=== PATIENT | male | born 1945 | race Caucasian/White ===

== ENCOUNTER 2017-02-05 03:04 | Inpatient (IN) | payer MEDICARE, OTHER ==
[~2017-02-05] VITALS: Ht 193 cm; Wt 132.9 kg
--- NOTE | ~2017-02-05 | DS ---
Discharge Summary [id number] [place]. [address] NAME: CM MCLAUGHLIN : 41 STATUS : ADM IN [facility]#: [id number] AGE: 72 ADM/REG DATE : 02/05/17 MR#: [id number] REPORT SERV DATE: 02/08/17 DICTATED BY: DIMITRIS RENDON II DATE: 02/07/17 REPORT STATUS : Draft TRANSCRIBED BY: MODL DATE: 02/07/17 ADMISSION DATE: 02/05/2017 DISCHARGE DATE: 02/07/2017 DISCHARGE DIAGNOSES: 1. Hypertension. 2. 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 3. Generalized weakness with falls prior to arrival in the setting of paraplegia. 4. Candidiasis to the skin. 5. Decubitus ulcer, present upon admission. 6. Chronic pain. 7. Type 2 diabetes. CONSULTATIONS: None. PERTINENT TESTS AND PROCEDURES: 1. Chest x-ray, 02/05/2017. Lungs clear with no infiltrates. No effusions or masses seen. Heart size normal. 2. Urinalysis, specimen collected, 02/05/2017, result: Moderate leukocyte esterase, positive nitrites, four red blood cells, and 112 white blood cells, few white blood cell clumps, less than one epithelial squamous cell, and many bacteria. 3. Blood cultures x2 sites, specimen collected 02/05/2017, preliminary result: No growth at one day. 4. Urine culture, final result greater than 100,000 colonies per mL of urine E. coli ESBL. HOSPITAL COURSE: Please refer to history and physical dated 02/05/[address] Raheem So for complete details pertaining to the patient's initial presentation upon admission and health history. Briefly, the patient is a 72-year-old male with a past medical history significant for type 2 diabetes chronic kidney disease, hypertension, recurrent urinary tract infections with ESBL E. coli, history of MRSA soft tissue infections, and paraplegia who has presented to the emergency department on 02/05/2017 with complaints of fall to the floor and generalized weakness. LABORATORY EVALUATION: Upon admission showed a white blood cell count of 6100, hemoglobin 11.9, hematocrit 37.6, and platelet count of 148. Urinalysis showed moderate leukocyte esterase, positive nitrites, 112 white blood cells, and many bacteria. The patient was admitted for generalized weakness and falls and urinary tract infection with history of recurrence E. coli ESBL versus carrier state. The patient was initially started on empiric IV antibiotic with meropenem for ESBL E. coli UTI with consult to Infectious Disease to see if they recommend continuing antibiotic therapy in the setting of possible carrier state/colonization. The patient is well known to Discharge Summary [address] [place]. [address] NAME: CM MCLAUGHLIN : 41 STATUS : ADM IN PAT#: [id number] AGE: 72 ADM/REG DATE : 02/05/17 MR#: [id number] REPORT SERV DATE: 02/08/17 DICTATED BY: DIMITRIS RENDON II DATE: 02/07/17 REPORT STATUS : Draft TRANSCRIBED BY: LESLIE DATE: 02/07/17 Shalom Zamora Disease. Based on the patient's asymptomatic state, to include no dysuria or hematuria, normal white blood cell count, and no fever, ID recommended discontinuing antibiotic therapy and to monitor closely all for signs and symptoms of infection. The patient reported he has been living successfully, had an independent living [facility] facility in [place] for quite some time. The patient reports also having modified vehicle that allows him to drive. The patient states up until recently he was able to perform his activities of daily living unassisted to include successful transfer from bed to wheelchair, toileting and dressing, and light meal preparation. The patient stated that the last two to three days prior to this admission, he had been feeling weaker than usual and was unable to transfer successfully from toilet to the wheelchair resulting in falls. The patient requested rehabilitation upon discharge in hopes of returning to independent living once therapy complete. The patient stated he would consider assisted living facility upon discharge from rehab if his baseline health status did not return. 1. UTI recurrent E. coli ESBL. This is likely carrier state/colonization. Review of the patient's medical records shows the patient had a multiple urine cultures positive for E. coli ESBL dating back as far as 2009. The patient is followed by Dr. Perez, urologist, on a routine basis. The patient reports having recent "antibiotic bladder wash" in September. The patient to follow up with Dr. Perez in the next several weeks for re-evaluation in the setting of recurrent urinary tract infections. The patient is urinating without difficulty with no symptoms of dysuria, hematuria, and quite increased urgency or frequency. 2. Hypertension. The patient states no medication and passed to manage hypertension. Reported blood pressure has always been reasonably controlled without medication intervention. The patient's systolic blood pressure has run elevated throughout this entire admission ranging between high 140s to 190s. The patient agreed to start amlodipine 5 mg tablet p.o. daily. This needs to be monitored on an outpatient basis, per primary care physician. Appointment time and date for followup with PCP are pending. 3. Generalized weakness. The patient has a history of paraplegia secondary to multiple spinal surgeries. The patient suffered a fall during transfer from the toilet to the wheelchair prior to this admission and requested rehabilitation after hospitalization in hopes of improving baseline health status to resume independent living in the near future. The patient will discharge to [facility] with goal to resume independent living. 4. Candidiasis of skin. The patient has yeast to axillae, breast, abdominal, and groin folds. Nystatin powder applied beneath both breasts and axillae and InterDry sheets applied to abdominal folds and groin until condition resolves. No creams, powders, or ointments applied underneath InterDry cloth. Treatment will likely be extended secondary to significance of rash. 5. Decubitus ulcer to right buttocks. This was present on admission. The patient aware of ulcer, but states unable to care for at home. Wound care was initiated during this hospitalization and [facility] facility has been informed of wound. If the patient discharges from rehab to independent living, will likely require home health care plus or minus wound care management. 6. Chronic pain. This is secondary to multiple surgeries. The patient is followed by Dr. Salas Summary [address] [address] NAME: CM MCLAUGHLIN : 41 STATUS : ADM IN PAT#: [id number] AGE: 72 ADM/REG DATE : 02/05/17 MR#: [id number] REPORT SERV DATE: 02/08/17 DICTATED BY: DIMITRIS RENDON II DATE: 02/07/17 REPORT STATUS : Draft TRANSCRIBED BY: LESLIE DATE: 02/07/17 [facility]on at [facility] to include baclofen pump refills. The patient will need to follow up as scheduled, appointment date and time is pending. 7. Type 2 diabetes. The patient's A1c was 5.1, December 2016. Continue home medications. DISCHARGE CONDITION: At the time of discharge, the patient is hemodynamically stable. Wheelchair for ambulation. DISCHARGE DIET: 2000 calorie ADA diet. DISCHARGE MEDICATIONS: 1. Vitamin C 500 mg tablet, take 250 mg p.o. daily. 2. Aspirin 81 mg tablet, take 162 mg p.o. daily. 3. Lipitor 10 mg tablet p.o. daily at bedtime. 4. Vitamin B12 of 1000 mcg IM every thirty days. 5. Caltrate plus D 600 p.o. twice daily. 6. Colace 100 mg tablet p.o. twice daily. 7. Vitamin D 50,000 units p.o. every Tuesday. 8. Duragesic 100 mcg/hour transdermal patch, applied topically every 72 hours. 9. Ferrous sulfate 300 mg tablet p.o. before breakfast. 10.Lasix 20 mg tablet p.o. twice daily at 9 a.m. and 4 p.m. 11.Neurontin 300 mg tablet p.o. three times daily. 12.Amaryl 2 mg tablet, take 1 mg p.o. with breakfast. 13.NovoLog sliding scale level 2 insulin subcu before meals and at bedtime. 14.Lidoderm 5% topical patch applied to the most painful area 12 hours within the 24-hour period, is currently is applied in the a.m. and removed in the p.m., however, the patient is requesting for a patch to be applied at h.s. and removed in the a.m. to help control pain throughout night time. 15.Theragran multiple vitamin p.o. daily. 16.Niacin 500 mg tablet p.o. twice daily. 17.Mycostatin topical powder, applied to axillae and bilateral breast until condition resolves. 18.Promega caplet two caplets p.o. daily. 19.Protonix 40 mg tablet p.o. daily. 20.MiraLAX 17 g p.o. daily, hold for diarrhea. 21.Potassium 10 mEq p.o. twice daily. 22.Florastor one caplet p.o. twice daily. 23.Senokot one tablet p.o. at bedtime. 24.Flomax 0.4 mg tablet p.o. daily at 0900 hours and 1800 hours. Give 30 minutes after the same meal each day. 25.Effexor XR 75 mg p.o. daily. 26.Tylenol 1000 mg p.o. every six hours as needed, not to exceed 4 g in 24 hours. 27.Liquid tears, applied one drop each eye as needed. 28.Neurontin 300 mg tablet p.o. daily as needed. 29.Dilaudid 4 mg tablet p.o. every four hours as needed. Hold for sedation. 30.Baclofen pump 574.2 mcg per day, as managed per Dr. Jose at [facility]. 31.Inqq-wct-fumjeew iron tablet p.o. daily. 32.Elocon cream 0.1%, applied topically as needed to dermatitis on face. Discharge Summary [address] [address] NAME: CM MCLAUGHLIN : 41 STATUS : ADM IN [facility]#: [id number] AGE: 72 ADM/REG DATE : 02/05/17 MR#: [id number] REPORT SERV DATE: 02/08/17 DICTATED BY: DIMITRIS RENDON II DATE: 02/07/17 REPORT STATUS : Draft TRANSCRIBED BY: LESLIE DATE: 02/07/17 33.InterDry sheets applied to all of them, abdominal and groin folds per package instructions. No creams, powders, lotions or ointments to area covered by InterDry sheet. 34.Amlodipine 5 mg tablet p.o. every a.m. Hold for systolic blood pressure less than 110. DISPOSITION INSTRUCTIONS: 1. Follow up with Dr. Jose, Pain Management, [facility], for baclofen pump refill. Appointment date and time pending number. 2. Follow up with Dr. Perez, Urology, for recurrent UTI ESBL E. coli colonization/carrier state. Appointment date and time pending. 3. Follow up with Dr. Martini, primary care physician, for routine health maintenance and new requirement for hypertensive medication. The patient to [facility] to [facility] for [facility] with plans to return to independent living facility. Collaborating physician, Dr. Dimitris Rendon. ROCIO/LESLIE Shantelle Poole, DIRECTOR OF COLLECTIONS AND ARCHIVES-C Dimitris Rendon II, MD / [id number] CC: MD Kyle Gregg II, M.D. Oliver Benton III, M.D. Hal Hill, M.D. Mani Ravee, M.D. [facility]
--- NOTE | ~2017-02-05 | HP ---
History And Physical [facility] [address] [place]. [address] NAME: CM MCLAUGHLIN : 41 STATUS : ADM IN [facility]#: [id number] AGE: 72 ADM/REG DATE : 02/05/17 MR#: [id number] REPORT SERV DATE: 02/05/17 DICTATED BY: RAHEEM LAMBERT DATE: 02/05/17 REPORT STATUS : Draft TRANSCRIBED BY: MODL DATE: 02/05/17 DATE OF ADMISSION: 02/05/2017 CHIEF COMPLAINT: Fall to the floor, generalized weakness. HISTORY OF PRESENT ILLNESS: This is a 72-year-old paraplegic gentleman, who lives at the [facility] [place], who has a history of diabetes, chronic kidney disease, hypertension, recurrent urinary tract infections with ESBL E. coli, who presents to the emergency room at [facility] with the above-mentioned complaint. History is obtained from the patient and reviewing data available on the [employer] System. According to Mr. Mclaughlin, he usually is able to take care of himself well, lives at an [facility] and has help from people around him as well. In the last two to three days, he says he has been feeling weaker than usual, and today when he was transferring from the toilet to his wheelchair, he suddenly felt his arms could not hold him and he slowly slid to the floor. He tried to get to the showers chair, but was unable to do so. EMS was subsequently summoned and the patient was brought to the emergency room for evaluation. He did not hit his head against anything, did not pass out or lose consciousness. In the emergency room, he did have a urinary tract infection along with generalized weakness and Hospitalist Service is asked to admit him for further evaluation and treatment. At the time of my evaluation, he denied any chest pain or palpitations. He had no orthopnea. He had no cough, hemoptysis, night sweats, or weight loss. He has not had any fevers or chills in the recent past. No dysuria. He has not had any nausea, vomiting, diarrhea, hematemesis, hematochezia, or hematuria. No other history of recent travel or exposures other than those mentioned above. PAST MEDICAL HISTORY: Significant for diabetes mellitus, chronic kidney disease, hypertension, history of MRSA soft tissue infections, recurrent urinary tract infections with ESBL E. coli, and he also has a history of depression and as mentioned above he is paraplegic. SOCIAL HISTORY: He does not smoke, drink, or use recreational drugs. FAMILY HISTORY: Noncontributory. MEDICATIONS: His medications at home were reviewed by me in the chart today and reordered by me. REVIEW OF SYSTEMS: As in history of present illness. All other systems were reviewed in detail and are quite unremarkable. PHYSICAL EXAMINATION: History And Physical [address] [address] NAME: CM MCLAUGHLIN : 41 STATUS : ADM IN [facility]#: [id number] AGE: 72 ADM/REG DATE : 02/05/17 MR#: [id number] REPORT SERV DATE: 02/05/17 DICTATED BY: RAHEEM LAMBERT DATE: 02/05/17 REPORT STATUS : Draft TRANSCRIBED BY: LESLIE DATE: 02/05/17 GENERAL: This is a pleasant 72-year-old not in any acute distress. HEENT: His head is atraumatic and normocephalic. He is alert, awake, oriented to time, place, and person. His pupils are equal, reacting to light and accommodating. External ocular muscles are intact. Membranes are moist and pink. Sclerae are nonicteric. NECK: Supple with no jugular venous distention, lymphadenopathy, or thyromegaly. LUNGS: Clear to auscultation with no wheezes, rubs, or crackles. HEART: Heart sounds were regular with no murmurs, rubs, or gallops. ABDOMEN: Soft and nontender. Bowel sounds are present. EXTREMITIES: He has paraplegia and otherwise without any cyanosis or clubbing. NEURO: Grossly intact. He was able to move his upper extremities. Higher functions appeared intact. VITAL SIGNS: His temperature was 97.1, pulse 80, respirations 20 a minute, blood pressure was 194/95, and oxygen saturations were 94% breathing 2 L of oxygen via nasal cannula. LABORATORY DATA: Reviewed on the [employer] system showed a normal CMP with a blood glucose of 123. His lipase was 53. Alkaline phosphatase, ALT, and AST were within normal limits. Troponin was 0.02. His lactate was 1.5 today. CBC showed a white blood cell count of 6100, hemoglobin was 11.9, hematocrit 37.6, and platelet count was 148,000. Urinalysis showed moderate leukocyte esterase, nitrite was positive, there were 112 wbc's and many bacteria. Films of the chest x-ray were reviewed by me on the PACS today and interpreted by me. Per my interpretation, there are no lobar consolidations or pleural effusions seen. A 12-lead EKG done in the emergency room was reviewed and interpreted by me. There is sinus rhythm at a rate of [address]-T changes. IMPRESSION: 1. Generalized weakness and fall. 2. Urinary tract infection with extended-spectrum beta-lactamase Escherichia coli or a carrier state. 3. Diabetes mellitus, type 2. 4. Paraplegia. 5. Chronic kidney disease. 6. Hypertension. 7. Depression. PLAN: We will admit Mr. Mclaughlin to the Hospitalist Service with defensive monitoring. After cultures are drawn, we will start him initially on empiric IV antibiotics with meropenem for the ESBL E. coli UTI and go ahead and consult Infectious Disease to see if they would recommend continuing it. Meanwhile, we will control his blood sugars with NovoLog given subcutaneously per sliding scale. We will also start him on some IV fluids for volume replacement. Check electrolytes and replete as needed. We will certainly consult Social Work to evaluate him for possible placement as he says he is unable to take care of himself History And Physical [address] [address] NAME: CM MCLAUGHLIN : 41 STATUS : ADM IN [facility]#: [id number] AGE: 72 ADM/REG DATE : 02/05/17 MR#: [id number] REPORT SERV DATE: 02/05/17 DICTATED BY: RAHEEM LAMBERT DATE: 02/05/17 REPORT STATUS : Draft TRANSCRIBED BY: LESLIE DATE: 02/05/17 anymore. He has managed by himself so far. We will also place him on an unfractionated heparin for DVT prophylaxis while here. I have discussed the above plans with the patient. His questions were answered, and he is agreeable to the above recommendations. Hospitalist Service will be following him during his stay here. /LESLIE Raheem Lambert M.D. / [id number] CC: MD Kyle Gregg II, M.D.
--- NOTE | ~2017-02-05 | DS ---
Discharge Summary [address] [place]. [address] NAME: CM MCLAUGHLIN : 41 STATUS : DIS IN PAT#: [id number] AGE: 72 ADM/REG DATE : 02/05/17 MR#: [id number] REPORT SERV DATE: 02/09/17 DICTATED BY: FEI MURRAY DATE: 02/08/17 REPORT STATUS : Draft TRANSCRIBED BY: MODL DATE: 02/08/17 ADMISSION DATE: 02/05/2017 DISCHARGE DATE: 02/08/2017 ADDENDUM: DISCHARGE DIAGNOSES: 1. Hypertension. 2. Recurrent urinary tract infection, Escherichia coli extended-spectrum beta-lactamase colonization. 3. Generalized weakness with recent falls prior to arrival in the setting of paraplegia. 4. Candidiasis to the skin. 5. Decubitus ulcer, present upon admission. 6. Chronic pain. 7. Type 2 diabetes. Addendum, the patient was originally discharged on 02/07/2017, but due to insurance approval, the patient was not discharged until 02/08/2017. The patient remained stable. Discharge to skilled facility. DISCHARGE CONDITION: The patient has been discharged in hemodynamically stable condition. Wheelchair for ambulation. DISCHARGE DIET: ADA 2000 calorie diet. DISCHARGE MEDICATIONS: Remain the same from previous date. DISCHARGE INSTRUCTIONS: 1. Pain Management, Dr. Jose at [facility] to refill baclofen pain pump. 2. Urology, Dr. Perez. 3. Primary care, Dr. Martini. Discharge took less than 30 minutes. [facility]/MODL Shanta Espinal, SENIOR FIELD SERVICE ENGINEER Fei Murray M.D. / [id number] Discharge Summary [address] [place]. [address] NAME: CM MCLAUGHLIN : 41 STATUS : DIS IN PAT#: [id number] AGE: 72 ADM/REG DATE : 02/05/17 MR#: [id number] REPORT SERV DATE: 02/09/17 DICTATED BY: FEI MURRAY DATE: 02/08/17 REPORT STATUS : Draft TRANSCRIBED BY: LESLIE DATE: 02/08/17 CC: Felix Grant M.D.
[~2017-02-05 03:04] MED LIST: ACET500CAP PO; ACIDOPHILU1 PO; ACIDOPHILU2 PO; ACIDOPHILUS PO; ACTOS15 PO; AMARYL1 MG PO; ASAB PO; AVANDIA4 PO; B121000P IM; BACLOFEN IT; BACLOFEN PAIN PUMP IT; BACLOFEN PUMP; BACTRIM; BACTROCR TOP; BACTROINT TOP; BION TEARS OPH; BIST PO; CALTRA600D PO; CHLORPHENIR4 MG OR; CIPRO; DESONIDE 0.05% TOP; DESONIDE0.05 % EX; DIL4TAB PO; DSS PO; DURA100 TOP; EFFEX75 PO; EFFEXXR75 PO; ELOCON 0.1% TOP; ELOCON CREAM 0.15 GM TOP; ELOCON0.12 EX; ELOCON0.12 TOP; FERROCITE OR; FERROCITE PO; FISH-EPA1000 MG PO; FLOMAX4 PO; FORTEO SC; FOSAMAX70 MG PO; GLYCOLAX3350 NF PO; HALF81 PO; HYDROCHLOROT25 MG PO; IRON PO; KDUR10 PO; KLOR-CON 1010 MEQ PO; L20 PO; LIDODERM T; LIOR10 PO; LIPITOR10 PO; MACROBID PO; MICONAZOLE 2% TOP; MIRALAX POWDER1 PKT PO; MIRALAXPKT PO; MONUROL PO; MULTIPLE VIT PO; MULTIVITAMIN/IRON PO; NAP500 PO; NEUR300 PO; NIACIN 500 PO; NIACOR500 MG PO; PERI-COLACE1 TAB PO; PRILO PO; PRIN5 PO; PROTONIX PO; RIFADIN 300 MG300 MG PO; RIFADIN PO; SENTAB PO; SEPTRA DS1 TAB PO; SKELAXIN8 PO; STOOL SOFTEN100 MG PO; STRESSIRON PO; THERGRANM PO; VITAMIN B-12 INJ IM; VITAMIN PO; VITC500 PO; VITD PO; Vitamin D3 PO; ZANAFLEX2 MG OR; ZOCOR20 PO; ZOSYN375 IV; [UNRECOGNIZED DRUG - CODE] IM; [UNRECOGNIZED DRUG - OTHER] IL; [UNRECOGNIZED DRUG - OTHER] OR; [UNRECOGNIZED DRUG - OTHER] OR; [UNRECOGNIZED DRUG - OTHER] PO; [UNRECOGNIZED DRUG - REMARK] PO
[2017-02-05 04:52] LABS: BASOPHILS 0.3 %; BASOPHILS ABSOLUTE 0.02 10/3/uL (0.0-0.16); EOSINOPHILS 2.6 %; EOSINOPHILS ABSOLUTE 0.16 10/3/uL (0.0-0.53); ER CBC TAT 0 Hrs 07 MinsNP; HEMATOCRIT 37.6 % (40.0-51.0); HEMOGLOBIN 11.9 g/dL (13.6-17.8); IMMATURE GRANULOCYTES 0.2 %; IMMATURE GRANULOCYTES ABSOLUTE 0.01 10/3/uL (0.0-0.11); LYMPHOCYTES 14.8 %; LYMPHOCYTES ABSOLUTE 0.91 10/3/uL (0.67-4.30); MANUAL DIFF NO %; MEAN CORPUS HGB CONC 31.6 g/dL (32.0-36.0); MEAN CORPUSCULAR HEMOGLOB 30.1 pg (26.0-34.0); MEAN CORPUSCULAR VOLUME 95.2 fL (80-100); MEAN PLATELET VOLUME 8.8 fL (9.2-13.0); MONOCYTES 9.3 %; MONOCYTES ABSOLUTE 0.57 10/3/uL (0.21-1.20); NEUTROPHILS 72.8 %; NEUTROPHILS ABSOLUTE 4.46 10/3/uL (2.02-8.40); PLATELET COUNT 148 10/3/uL (150-400); RBC DISTRIBUTION WIDTH 14.3 % (12.0-16.0); RED CELL COUNT 3.95 10/6/uL (4.7-6.1); WHITE BLOOD CELLS 6.1 10/3/uL (4.5-10.5)
[2017-02-05 05:06] LABS: A/G RATIO 0.8 (0.7-1.9); BUN (BLOOD UREA NITROGEN) 15 MG/DL (6-23); CALCIUM, SERUM 8.7 MG/DL (8.5-10.4); CHLORIDE, SERUM 104 MMOL/L (96-112); CO2 (CARBON DIOXIDE) 34 MMOL/L (24-34); CREATININE 1.16 MG/DL (0.70-1.30); GFR AFRICAN AMERICAN 72 ML/MIN (>=60); GFR NON AFRICAN AMERICAN 62 ML/MIN (>=60); LACTATE 1.5 MMOL/L (0.3-2.4); POTASSIUM, SERUM 3.7 MMOL/L (3.5-5.3); SGOT(AST) 18 U/L (5-40); SGPT(ALT) 14 U/L (5-65); SODIUM, SERUM 145 MMOL/L (135-148); TOTAL BILIRUBIN 0.4 MG/DL (0-1.2); TROPONIN I <0.02 NG/ML (<0.05)
[2017-02-05 05:09] LABS: ALKALINE PHOSPHATASE 116 U/L (45-117); GLUCOSE, SERUM 123 MG/DL (60-99)
[2017-02-05] MEDS ORDERED: EFFEXXR75 PO (05:57)
[2017-02-05 05:58] LABS: ASCORBIC ACID (UR NOT ORDER) 40 (NEG); BILIRUBIN, URINE NEGATIVE (NEG); ER URINALYSIS TAT 0 Hrs 00 Mins; KETONE, URINE NEGATIVE (NEG); LEUKOCYTE ESTERASE(NOT OR MOD (NEG); WBC (NOT ORDERED) (RFLEX) 112 (0-5)
[2017-02-05] MEDS ORDERED: ACET500CAP PO (05:58)
[2017-02-05 05:59] LABS: NITRITE (URINE) POS (NEG)
[2017-02-05] MEDS ORDERED: ASAB PO (05:59)
[2017-02-05] MEDS ORDERED: VITAMIN C100 MG PO (05:59)
[2017-02-05] MEDS ORDERED: LIPITOR10 PO (05:59)
[2017-02-05] MEDS ORDERED: CALTRA600D PO (06:00)
[2017-02-05] MEDS ORDERED: B121000P IM (06:01)
[2017-02-05] MEDS ORDERED: DSS PO (06:02)
[2017-02-05] MEDS ORDERED: VITD PO (06:02)
[2017-02-05] MEDS ORDERED: L20 PO (06:03)
[2017-02-05] MEDS ORDERED: AMARYL1 MG PO (06:03)
[2017-02-05] MEDS ORDERED: DIL4TAB PO (06:04)
[2017-02-05] MEDS ORDERED: ACIDOPHILU2 PO (06:05)
[2017-02-05] MEDS ORDERED: NIACIN 500 PO (06:05)
[2017-02-05] MEDS ORDERED: PRILO PO (06:06)
[2017-02-05] MEDS ORDERED: FISH-EPA1000 MG PO (06:06)
[2017-02-05] MEDS ORDERED: KDUR10 PO (06:07)
[2017-02-05] MEDS ORDERED: MIRALAX POWDER1 PKT PO (06:07)
[2017-02-05] MEDS ORDERED: PERI-COLACE1 TAB PO (06:08)
[2017-02-05] MEDS ORDERED: FLOMAX4 PO (06:08)
[2017-02-05] MEDS ORDERED: LIDODERM TOP (06:14)
[2017-02-05 08:57] LABS: BASOPHILS 0.2 %; BASOPHILS ABSOLUTE 0.01 10/3/uL (0.0-0.16); EOSINOPHILS 2.9 %; EOSINOPHILS ABSOLUTE 0.19 10/3/uL (0.0-0.53); HEMATOCRIT 40.4 % (40.0-51.0); HEMOGLOBIN 12.9 g/dL (13.6-17.8); IMMATURE GRANULOCYTES 0.2 %; IMMATURE GRANULOCYTES ABSOLUTE 0.01 10/3/uL (0.0-0.11); LYMPHOCYTES 20.2 %; LYMPHOCYTES ABSOLUTE 1.33 10/3/uL (0.67-4.30); MANUAL DIFF NO %; MEAN CORPUS HGB CONC 31.9 g/dL (32.0-36.0); MEAN CORPUSCULAR HEMOGLOB 30.4 pg (26.0-34.0); MEAN CORPUSCULAR VOLUME 95.3 fL (80-100); MEAN PLATELET VOLUME 9.3 fL (9.2-13.0); MONOCYTES 11.3 %; MONOCYTES ABSOLUTE 0.74 10/3/uL (0.21-1.20); NEUTROPHILS 65.2 %; NEUTROPHILS ABSOLUTE 4.29 10/3/uL (2.02-8.40); PLATELET COUNT 170 10/3/uL (150-400); RBC DISTRIBUTION WIDTH 14.3 % (12.0-16.0); RED CELL COUNT 4.24 10/6/uL (4.7-6.1); WHITE BLOOD CELLS 6.6 10/3/uL (4.5-10.5)
[2017-02-05 09:08] LABS: BUN (BLOOD UREA NITROGEN) 15 MG/DL (6-23); CHLORIDE, SERUM 105 MMOL/L (96-112); CO2 (CARBON DIOXIDE) 31 MMOL/L (24-34); GFR AFRICAN AMERICAN 86 ML/MIN (>=60); GFR NON AFRICAN AMERICAN 74 ML/MIN (>=60); GLUCOSE, SERUM 106 MG/DL (60-99); PHOSPHORUS, SERUM 3.4 MG/DL (2.5-4.5); POTASSIUM, SERUM 3.9 MMOL/L (3.5-5.3); SODIUM, SERUM 145 MMOL/L (135-148)
[2017-02-06 05:24] LABS: BASOPHILS 0.4 %; BASOPHILS ABSOLUTE 0.02 10/3/uL (0.0-0.16); EOSINOPHILS 4.1 %; EOSINOPHILS ABSOLUTE 0.21 10/3/uL (0.0-0.53); HEMOGLOBIN 11.6 g/dL (13.6-17.8); IMMATURE GRANULOCYTES 0.4 %; IMMATURE GRANULOCYTES ABSOLUTE 0.02 10/3/uL (0.0-0.11); LYMPHOCYTES 23.2 %; LYMPHOCYTES ABSOLUTE 1.18 10/3/uL (0.67-4.30); MEAN CORPUS HGB CONC 32.5 g/dL (32.0-36.0); MEAN CORPUSCULAR HEMOGLOB 30.3 pg (26.0-34.0); MEAN CORPUSCULAR VOLUME 93.2 fL (80-100); MEAN PLATELET VOLUME 9.1 fL (9.2-13.0); MONOCYTES ABSOLUTE 0.56 10/3/uL (0.21-1.20); NEUTROPHILS 60.9 %; PLATELET COUNT 154 10/3/uL (150-400); RBC DISTRIBUTION WIDTH 14.5 % (12.0-16.0); RED CELL COUNT 3.83 10/6/uL (4.7-6.1); WHITE BLOOD CELLS 5.1 10/3/uL (4.5-10.5)
[2017-02-06 05:26] LABS: BUN (BLOOD UREA NITROGEN) 12 MG/DL (6-23); CALCIUM, SERUM 8.5 MG/DL (8.5-10.4); CHLORIDE, SERUM 108 MMOL/L (96-112); CO2 (CARBON DIOXIDE) 29 MMOL/L (24-34); GFR AFRICAN AMERICAN 102 ML/MIN (>=60); GFR NON AFRICAN AMERICAN 88 ML/MIN (>=60); POTASSIUM, SERUM 3.8 MMOL/L (3.5-5.3); SODIUM, SERUM 144 MMOL/L (135-148)
[2017-02-06 05:30] LABS: GLUCOSE, SERUM 73 MG/DL (60-99)
[2017-02-06 05:45] LABS: HEMATOCRIT 35.7 % (40.0-51.0); MANUAL DIFF NO %
[2017-02-07 06:03] LABS: BASOPHILS 0.2 %; BASOPHILS ABSOLUTE 0.01 10/3/uL (0.0-0.16); EOSINOPHILS 4.1 %; EOSINOPHILS ABSOLUTE 0.19 10/3/uL (0.0-0.53); HEMATOCRIT 33.4 % (40.0-51.0); HEMOGLOBIN 10.8 g/dL (13.6-17.8); LYMPHOCYTES ABSOLUTE 1.35 10/3/uL (0.67-4.30); MEAN CORPUS HGB CONC 32.3 g/dL (32.0-36.0); MEAN CORPUSCULAR HEMOGLOB 30.3 pg (26.0-34.0); MEAN CORPUSCULAR VOLUME 93.8 fL (80-100); MEAN PLATELET VOLUME 8.9 fL (9.2-13.0); MONOCYTES 8.4 %; MONOCYTES ABSOLUTE 0.39 10/3/uL (0.21-1.20); NEUTROPHILS 58.3 %; NEUTROPHILS ABSOLUTE 2.72 10/3/uL (2.02-8.40); PLATELET COUNT 151 10/3/uL (150-400); RBC DISTRIBUTION WIDTH 14.2 % (12.0-16.0); RED CELL COUNT 3.56 10/6/uL (4.7-6.1); WHITE BLOOD CELLS 4.7 10/3/uL (4.5-10.5)
[2017-02-07 06:05] LABS: MANUAL DIFF NO %
[2017-02-07 06:17] LABS: BUN (BLOOD UREA NITROGEN) 10 MG/DL (6-23); CALCIUM, SERUM 8.7 MG/DL (8.5-10.4); CHLORIDE, SERUM 106 MMOL/L (96-112); CO2 (CARBON DIOXIDE) 29 MMOL/L (24-34); CREATININE 0.79 MG/DL (0.70-1.30); GFR AFRICAN AMERICAN 103 ML/MIN (>=60); GFR NON AFRICAN AMERICAN 88 ML/MIN (>=60); GLUCOSE, SERUM 87 MG/DL (60-99); POTASSIUM, SERUM 3.6 MMOL/L (3.5-5.3); SODIUM, SERUM 142 MMOL/L (135-148)
== END 2017-02-08 12:16 | DRG 690 ==
LOC: ER 03:04 → 4EA 06:36
PROVIDERS: Emergency Medicine; Internal Medicine; Internal Medicine Pulmonary Disease; Nurse Practitioner Family
DX: N39.0 Urinary tract infection, site not specified (principal); L89.312 Pressure ulcer of right buttock, stage 2; G82.20 Paraplegia, unspecified; E11.22 Type 2 diabetes mellitus with diabetic chronic kidney disease; B96.20 Unspecified Escherichia coli [E. coli] as the cause of diseases classified elsewhere; F32.9 Major depressive disorder, single episode, unspecified; I12.9 Hypertensive chronic kidney disease with stage 1 through stage 4 chronic kidney disease, or unspecified chronic kidney disease; N18.9 Chronic kidney disease, unspecified; Z86.14 Personal history of Methicillin resistant Staphylococcus aureus infection; Z91.81 History of falling; B37.2 Candidiasis of skin and nail; G89.29 Other chronic pain
CPT/HCPCS: 71010; 80048; 80053; 81001; 82962; 83605; 83690; 83735; 84100; 84484; 85025; 87040; 87077; 87086; 87186; 93005; 97162-GP; 99285; A9270-GY; G8978-CL-GP; G8979-CK-GP; J0360; J2185